=== PATIENT | male | born 1970 | race Caucasian/White ===

== ENCOUNTER 2019-04-01 16:42 | Emergency (ER) | payer SELFPAY | END 2019-04-01 17:53 | disposition home or self-care (01) | PROVIDERS: Emergency Provider Physician Assistant; Visit Provider Physician Assistant | DX: T63.301A Toxic effect of unspecified spider venom, accidental (unintentional), initial encounter (principal); L02.415 Cutaneous abscess of right lower limb; Z86.14 Personal history of Methicillin resistant Staphylococcus aureus infection | CPT/HCPCS: 10060; 96372; 99284; J2001; J3490 ==

== ENCOUNTER 2023-11-04 13:02 | Emergency (ER) | payer SELFPAY ==
[2023-11-04 13:06] VITALS: BP 126/78; PULSE 89; RESP 16; TEMP 36.8; O2SAT 98; BMI 27.6
--- NOTE | 2023-11-04 13:45 | ED_ITS ---
HPI - Altered Mental Status 2 General: Chief Complaint: Altered Mental Status Stated Complaint: no memory of 24 to 36 hours--possible seizure Time Seen by Provider: 11/04/23 13:45 History of Present Illness: 53-year-old male patient comes in today with not recalling the last 24 to 36 hours. Patient is concerned that he may have had a seizure. Patient has never known to have had seizures. Patient does endorse the use of tobacco and marijuana products. Patient denies alcohol or methamphetamines. Patient occasionally use Tylenol for pain. Patient denies any other chronic medical problems or medication use. Patient is alert and responds appropriately to questions at this time. Patient appears nontoxic. Patient moves all extremities well. Review of Systems 2 General: Reports: 10 or more systems reviewed and unremarkable except in HPI and below Physical Exam 2 Const: COMMON NORMALS: alert HENMT: COMMON NORMALS: normocephalic HEAD & SCALP: normocephalic THROAT: posterior oropharynx normal Neck/C-Spine: COMMON NORMALS: full ROM Chest: COMMONS NORMALS: normal inspection of the chest Resp: COMMON NORMALS: normal respiratory effort and clear to auscultation bilaterally AUSCULTATION: clear to auscultation bilaterally Cardio: COMMON NORMALS: regular rate and regular rhythm RATE: regular rate RHYTHM: regular rhythm GI: COMMON NORMALS: Soft to palpation and non-tender PALPATION: Yes Soft to palpation Back/Pelvis: COMMON NORMALS: thoracic and lumbar spine normal to inspection Extremity: COMMON NORMALS: full ROM Neuro: SENSORIUM/ORIENTATION: Yes alert Skin: COMMON NORMALS: turgor normal GENERAL SKIN EXAM: turgor normal Course 2 Vital Signs: Vital signs: Vital Signs Temperature 98.2 F 11/04/23 13:06 Pulse Rate 79 11/04/23 14:11 Respiratory Rate 16 11/04/23 14:11 Blood Pressure 130/86 11/04/23 14:11 Pulse Oximetry 97 11/04/23 14:11 Oxygen Delivery Me thod Room Air 11/04/23 14:11 MDM - Altered Mental Status Medical Decision Making 53-year-old male patient comes in today with complaints of loss of time. Patient reports not being able to recall the last 24 to 36 hours. Patient believes that he may have had a seizure. Patient has no history of seizures. Patient does use nicotine and THC. Lungs are clear to auscultation. Patient moves all extremities well. No focal neurodeficits. Vital signs are normal. Differential diagnosis includes not limited to seizure episode, intracranial mass, major depressive disorder, electrolyte imbalance, viral syndrome, adverse drug effect, anxiety disorder. CBC was normal. CMP suggest may be some mild dehydration. CT of the head was normal. Reviewed exam with patient offered fluids per IV but patient did not want to have that. Patient has not been sick or throwing up and feels he can rehydrate orally. Patient did agree for referral to neurology for further evaluation of memory changes and possible seizures. Case management referral was placed. Lab Data 11/04/23 13:30 11/04/23 13:[address] 11/04/23 13:49 IMPRESSION: 1. No evidence of intracranial hemorrhage or mass effect. 2. No acute intracranial findings. Laboratory Results WBC 7.35 10^3/uL (3.29-11.43) 11/04/23 13:30 RBC 4.89 10^6/uL (3.85-5.65) 11/04/23 13:30 Hgb 14.80 g/dL (11.27-16.99) 11/04/23 13:30 Hct 44.0 % (37-53) 11/04/23 13:30 MCV 90.0 fl (82-101) 11/04/23 13:30 MCH 30.3 pg (27-33) 11/04/23 13:30 MCHC 33.6 g/dL (30-55) 11/04/23 13:30 RDW 12.7 % (12.1-15.1) 11/04/23 13:30 Plt Count 239 10^3/cmm (157-399) 11/04/23 13:30 MPV 8.9 fL (7.4-10.4) 11/04/23 13:30 Neut % (Auto) 55.8 % 11/04/23 13:30 Lymph % (Auto) 35.9 % 11/04/23 13:30 [place] % (Auto) 6.1 % 11/04/23 13:30 Eos % (Auto) 1.5 % 11/04/23 13:30 Baso % (Auto) 0.4 % 11/04/23 13:30 Neut # (Auto) 4.10 10^3/uL (1.8-7.7) 11/04/23 13:30 Lymph # (Auto) 2.6 10^3/uL (0.8-4.8) 11/04/23 13:30 [place] # (Auto) 0.5 10^3/uL (0.2-0.9) 11/04/23 13:30 Eos # (Auto) 0.1 10^3/uL (0.0-0.8) 11/04/23 13:30 Baso # (Auto) 0.0 10^3/uL (0.0-0.1) 11/04/23 13:30 Nucleated RBC % (auto) 0 % 11/04/23 13:30 Nucleated RBCs # 0.0 /100WBC 11/04/23 13:30 Sodium 138 mmol/L (136-145) 11/04/23 13:30 Potassium 3.8 mmol/L (3.5-5.1) 11/04/23 13:30 Chloride 103 mmol/L (98-107) 11/04/23 13:30 Carbon Dioxide 19 mmol/L (22-29) L 11/04/23 13:30 Anion Gap 19.8 (5-19) H 11/04/23 13:30 BUN 36 mg/dL (6-20) H 11/04/23 13:30 Creatinine 1.0 mg/dL (0.7-1.2) 11/04/23 13:30 GFR Calculation 77.9 mL/min (90-130) L 11/04/23 13:30 Glucose 119 mg/dL (65-115) H 11/04/23 13:30 Calculated Osmolality 295 mOsm/kg (285-295) 11/04/23 13:30 Calcium 9.0 mg/dL (8.5-10.5) 11/04/23 13:30 Total Bilirubin 0.7 mg/dL (0.15-1.2) 11/04/23 13:30 AST 38 U/L (0-40) 11/04/23 13:30 ALT 25 U/L (0-41) 11/04/23 13:30 Alkaline Phosphatase 84 U/L (40-130) 11/04/23 13:30 Total Protein 6.9 g/dL (6.6-8.7) 11/04/23 13:30 Albumin 3.7 g/dL (3.5-5.2) 11/04/23 13:30 Globulin 3.2 g/dL (1.3-4.6) 11/04/23 13:30 All radiology interpretation(s) finalized by discharge Discharge Plan Discharge Patient Disposition: Home Clinical Impression: Memory change, Dehydration Condition: Stable Prescriptions: No Action No Known Home Medications Discharge Orders: Discharge ED (Routine); Ordered 11/04/23 Ordered By: Lauro Mendez Discharge Diet: Usual diet Discharge Activity: Increase activity as tolerated Patient Instructions: Altered Mental Status (ED) Activity Restrictions/Additional Instructions: Encourage plenty of fluids. I would recommend that decrease use of THC containing products at this time as that may interfere with your recollection and memory. Otherwise we will have you follow-up with neurology for further evaluation to rule out seizure disorder or other cognitive memory disorders. Return to ER for new concerns. Coding Level of Care Code ED General Office Clerk for [address]
[2023-11-04 13:49] LABS: Basophils % 0.4 %; Eosinophils # 0.1 10^3/uL (0.0-0.8); Eosinophils % 1.5 %; Lymphocytes # 2.6 10^3/uL (0.8-4.8); Lymphocytes % 35.9 %; Mean Corpuscular HGB Conc 33.6 g/dL (30-55); Mean Corpuscular Hemoglobin 30.3 pg (27-33); Mean Platelet Volume 8.9 fL (7.4-10.4); Monocytes # 0.5 10^3/uL (0.2-0.9); Monocytes % 6.1 %; Neutrophils % 55.8 %; Nucleated Red Blood Cells % 0 %; Platelet Count 239 10^3/cmm (157-399); Red Blood Count 4.89 10^6/uL (3.85-5.65); Red Cell Distribution Width 12.7 % (12.1-15.1); White Blood Count 7.35 10^3/uL (3.29-11.43)
--- NOTE | 2023-11-04 13:49 | CT_ITS ---
WS: [id number] CT HEAD TECHNIQUE: Noncontrast CT of the head obtained from the skullbase to the vertex. CLINICAL INFORMATION: AMS COMPARISON: None. DLP: 1104.[address] scans at [facility] use at least one of these dose optimization techniques: automated e xposure control; mA and/or kV adjustment per patient size (includes targeted exams where dose is matc hed to clinical indication); or iterative reconstruction. FINDINGS: No evidence of intracranial hemorrhage or mass effect. Ventricular system and basal cisterns are mayo nt. No extra-axial fluid collections. No evidence of mass or mass effect. Normal burgess-white different iation. Vascular calcification. Paranasal sinuses and mastoid air cells are well aerated. .Normal visualized soft tissues. CT/CT head wo con* [id number] IMPRESSION: 1. No evidence of intracranial hemorrhage or mass effect. 2. No acute intracranial findings.
[2023-11-04 14:11] VITALS: BP 130/86; PULSE 79; RESP 16; O2SAT 97
[2023-11-04 14:34] LABS: Alanine Aminotransferase 25 U/L (0-41); Albumin Level 3.7 g/dL (3.5-5.2); Alkaline Phosphatase 84 U/L (40-130); Blood Urea Nitrogen 36 mg/dL (6-20); Carbon Dioxide 19 mmol/L (22-29); Chloride 103 mmol/L (98-107); Creatinine Clr Calc Pharmacy 105.5038; Globulin 3.2 g/dL (1.3-4.6); Glomerular Filtration Rate 77.9 mL/min (90-130); Glucose 119 mg/dL (65-115); Osmolality Calculated 295 mOsm/kg (285-295); Sodium 138 mmol/L (136-145); Total Bilirubin 0.7 mg/dL (0.15-1.2); Total Protein 6.9 g/dL (6.6-8.7)
[2023-11-04 14:35] LABS: Anion Gap 19.8 (5-19); Aspartate Amino Transferase 38 U/L (0-40); Potassium 3.8 mmol/L (3.5-5.1)
[2023-11-04 14:49] VITALS: BP 121/94; PULSE 80; O2SAT 96
--- NOTE | 2023-11-05 13:19 | DCPLANNER ---
messaged neurology for er f/u
== END 2023-11-04 14:51 | disposition home or self-care (01) ==
PROVIDERS: Emergency Medicine; Emergency Provider Nurse Practitioner Family
DX: E86.0 Dehydration (principal); R41.3 Other amnesia
CPT/HCPCS: 36415; 70450; 80053; 85025; 99284

== ENCOUNTER 2023-11-08 09:49 | Emergency (ER) | payer SELFPAY ==
[2023-11-08 09:54] VITALS: BP 164/111; PULSE 84; RESP 22; TEMP 36.5; O2SAT 100
--- NOTE | 2023-11-08 10:24 | XRR_ITS ---
PROCEDURE INFORMATION: Exam: XR Right Ankle Exam date and time: 11/08/2023 10:40 AM Age: 53 years old Clinical indication: Pain; Ankle; Right; Additional info: Pain and swelling TECHNIQUE: Imaging protocol: Radiologic exam of the right ankle. Views: 3 or more views. COMPARISON: CR XR foot RT min 3V* [id number] 11/08/2023 10:40 AM FINDINGS: Bones/joints: No acute fracture or subluxation. Soft tissues: Mild soft tissue swelling along the bilateral malleolus. 16 millimeters x 0.7 millimeter metallic foreign object along the plantar soft tissues of the midfoot. XR/XR ankle RT min 3V* [id number] IMPRESSION: 1. No acute fracture, mild soft tissue swelling of the ankle. 2. 16 millimeters x 0.7 millimeter metallic foreign object along the plantar soft tissues of the midfoot.
--- NOTE | 2023-11-08 10:24 | XRR_ITS ---
PROCEDURE INFORMATION: Exam: XR Right Foot Exam date and time: 11/08/2023 10:40 AM Age: 53 years old Clinical indication: Pain; Foot; Right; Additional info: Pain and swelling TECHNIQUE: Imaging protocol: Radiologic exam of the right foot. Views: 3 or more views. COMPARISON: CR (LOW EXM, ) 11/08/2023 10:40 AM FINDINGS: Bones/joints: No acute fracture or subluxation. Soft tissues: Mild soft tissue swelling along the bilateral malleolus. 16 millimeters x 0.7 millimeter metallic foreign object along the plantar soft tissues of the midfoot. XR/XR foot RT min 3V* [id number] IMPRESSION: 1. No acute fracture, mild soft tissue swelling of the ankle. 2. 16 millimeters x 0.7 millimeter metallic foreign object along the plantar soft tissues of the midfoot.
--- NOTE | 2023-11-08 10:25 | ED_ITS ---
HPI - Extremity Problem 2 General: Chief complaint: Extremity Injury, Lower Stated complaint: right foot pain Time Seen by Provider: 11/08/23 09:57 Source: patient Mode of arrival: ambulatory Limitations: no limitations History of Present Illness: This patient comes to the emergency room because he think he is having a gout attack. He states approximately 2 days ago he started noticing pain in his ankle which also developed subsequently in his foot. He denies any known trauma falls twisting etc. He states that the pain is similar to that that he is experienced with gout attacks in the past. He denies any fevers or chills. He states that he does not take any current medications to include any diuretics or uric acid reducing medicines etc. He states he does not drink alcohol. He states he is otherwise in pretty good health. He denies any other joint pain. MD Complaint: extremity pain and extremity swelling Associated symptoms: Deny fever(s) or rash Review of Systems 2 Const: Denies: fever(s) or chills ENMT: Denies: odynophagia, nasal discharge or nasal congestion Card: Denies: palpitations, syncope or pre-syncope Resp: Denies: dyspnea, productive cough or non-productive cough GI: Denies: abdominal pain, nausea or vomiting : Denies: difficulty urinating, dysuria or urinary frequency Musc: Reports: extremity pain Skin/Breast: Denies: rash or pruritus Neuro: Denies: headache(s), numbness in extremities or weakness in extremities Endo: Denies: polyuria or polydipsia Physical Exam 2 Narrative: EXAM NARRATIVE: Patient appears to be comfortable in no acute distress. He has normal body habitus and answers questions in a goal-directed fashion. Const: COMMON NORMALS: no acute distress, average body habitus and patient oriented x3 GENERAL APPEARANCE: cooperative HENMT: COMMON NORMALS: normocephalic and Normal nasal mucous membranes and turbinates present HEAD & SCALP: normocephalic NOSE: Normal nasal mucous membranes and turbinates present Eye: COMMON NORMALS: Equal, round and reactive pupils present and conjunctivae normal CONJUNCTIVA: Yes conjunctivae normal PUPIL: Yes Equal, round and reactive pupils present Neck/C-Spine: COMMON NORMALS: full ROM Resp: COMMON NORMALS: normal respiratory effort and No use of accessory muscles EFFORT & INSPECTION: Yes able to speak in complete sentences and Yes symmetric chest movement Cardio: COMMON NORMALS: regular rate and Peripheral pulses 2+ throughout R ATE: regular rate PERIPHERAL PULSES: Peripheral pulses 2+ throughout Back/Pelvis: COMMON NORMALS: thoracic and lumbar spine normal to inspection, no thoracic nor lumbar tenderness and thoraco-lumbar ROM normal Extremity: COMMON NORMALS: capillary refill normal NARRATIVE EXTREMITY EXAM: Examination with attention to his right lower extremity reveals normal range of motion at the hip and knee joint. He has reduced ankle dorsiflexion and plantarflexion as well as reduced movement of the intrinsic foot to include extension and flexion of toes. These are limited by subjective pain. The skin appears to be slightly shiny. There is no significant erythema. There is localized tenderness throughout the area involving his distal leg and ankle to the light touch. There is no obvious palpable effusion. He does have some nonpitting soft tissue edema. Examination of the intertriginous areas reveals no fissures etc. No evidence of lacerations or injury. There is a abraded area in his heel but there is no drainage or significant erythema. He does have minimal tenderness to AP compression of the ankle as well as AP compression of the foot. There is no midfoot tenderness to plantar palpation. Neurovascular intact otherwise. Neuro: COMMON NORMALS: patient oriented x3, moves all extremities, no focal motor deficits and no sensory deficits noted Psych: COMMON NORMALS: mental status grossly normal Skin: COMMON NORMALS: no rashes or lesions noted, no wounds and turgor normal GENERAL SKIN EXAM: no rashes or lesions noted and turgor normal Course 2 Reevaluation(s): Reevaluation #1: On my preliminary evaluation of the foot x-rays are noted what appears to be a linear metallic appearing foreign body in the subcutaneous tissues of the plantar surface of the midfoot. I asked the patient if he had stepped on anything recently denied. I reexamined him again and there was no area of recent puncture wound there is no erythema no local tenderness in the region corresponding to what appears to be a linear metallic foreign body. He then related that he had stepped on a needle many years ago. He states that this area had never bothered him and it was not painful or tender. Time: 11:03 Reevaluation #2: Portable bedside ultrasound was used to visualize the venous structures of the right lower extremity. Using a linear transducer the popliteal vessels at the trifurcation were visualized and were fully compressible. Following the venous structures proximally at the junction of the superficial femoral and deep femoral veins they were fully compressible as well. No evidence of suggest at this time of a deep venous thrombosis. Time: 14:36 Vital Signs: Vital signs: Vital Signs Temperature 97.7 F 11/08/23 09:54 Pulse Rate 84 11/08/23 09:54 Respiratory Rate 22 H 11/08/23 09:54 Blood Pressure 164/111 11/08/23 09:54 Pulse Oximetry 100 11/08/23 09:54 Oxygen Delivery Me thod Room Air 11/08/23 09:54 MDM - Extremity (Nontraumatic) Medical Decision Making This patient presents to the emergency department because of right foot and ankle discomfort and swelling over the past several days. No associated fevers or clinical redness. The remainder of his presentation is consistent with his HPI. He denies any recent injury etc. Clinical exam revealed some's nonpitting soft tissue swelling of the right lower extremity. There is no proximal lymphangitis or lymphadenopathy noted. Differential included possible fracture,, dislocation, cellulitis, gouty arthritis less likely infection or retained foreign body etc. Very unlikely to be a deep venous thrombosis. Radiographs obtained did reveal evidence of a needle like structure in the plantar area of his foot without any surrounding edema etc. He has chemistries when obtained revealed normal renal function and a normal uric acid. He did have a small abrasion is noted in his heel whether or not as a source of potential infection is not clear but certainly no evidence at this time to suggest a significant infection but he does have the soft tissue swelling. No evidence of DVT, uric acid elevation consistent with gout etc. Also no evidence of fracture, dislocation etc. He has had the foreign body in his plantar foot for over 2 years without any issues but this certainly could have caused a occult cellulitis but there is no evidence of local tenderness erythema etc. Discussed all findings with the patient. Plan will be to put him on a course of antibiotics put in a consultation for podiatry and also discussed return precautions in detail. Lab Data I reviewed the patient's lab results. 11/08/23 13:58 Radiology Impressions Ankle X-Ray 11/08/23 10:24 IMPRESSION: 1. No acute fracture, mild soft tissue swelling of the ankle. 2. 16 millimeters x 0.7 millimeter metallic foreign object along the plantar soft tissues of the midfoot. Foot X-Ray 11/08/23 10:24 IMPRESSION: 1. No acute fracture, mild soft tissue swelling of the ankle. 2. 16 millimeters x 0.7 millimeter metallic foreign object along the plantar soft tissues of the midfoot. Laboratory Results Sodium 133 mmol/L (136-145) L 11/08/23 13:58 Potassium 3.9 mmol/L (3.5-5.1) 11/08/23 13:58 Chloride 99 mmol/L (98-107) 11/08/23 13:58 Carbon Dioxide 23 mmol/L (22-29) 11/08/23 13:58 Anion Gap 14.9 (5-19) 11/08/23 13:58 BUN 10 mg/dL (6-20) 11/08/23 13:58 Creatinine 0.8 mg/dL (0.7-1.2) 11/08/23 13:58 GFR Calculation 100.7 mL/min (90-130) 11/08/23 13:58 Glucose 95 mg/dL (65-115) 11/08/23 13:58 Calculated Osmolality 275 mOsm/kg (285-295) L 11/08/23 13:58 Uric Acid 5.4 mg/dL (3.4-7.0) 11/08/23 13:58 Calcium 8.8 mg/dL (8.5-10.5) 11/08/23 13:58 All radiology interpretation(s) finalized by discharge Discharge Plan Discharge Patient Disposition: Home Clinical Impression: Foot and ankle pain Condition: Stable Prescriptions: New cephalexin 500 mg capsule 500 mg PO TID 7 Days Qty: 21 0RF No Action No Known Home Medications Discharge Orders: Discharge ED (Routine); Ordered 11/08/23 Ordered By: Landon Turner Discharge Diet: Usual diet Discharge Activity: Increase activity as tolerated Patient Instructions: Opioid Safety, Pain Management Activity Restrictions/Additional Instructions: As we discussed you do not have any evidence that you have a bony injury such as a fracture or dislocation etc. There is is a possibility he may have a low- grade soft tissue infection so therefore we have prescribed an antibiotic. You do not appear to have any evidence of gout at this time. We discussed you have what appears to be a metallic foreign body in your sole of your foot which you have known about and that may or may not be a factor in your current foot pain and swelling. We have placed a request for podiatry consult as well. If your symptoms do not continue to improve over the next 3 to 5 days or worsen at any time or you develop new symptoms you are to return to the emergency department for reevaluation. You should hear from case management regarding a podiatry appointment. You may use either ice acetaminophen or ibuprofen for pain and discomfort. Coding Level of Care Code ED Charge Accounts Audit Clerk for [address]
[2023-11-08] MEDS: HYDROcodone-acetaminophen 7.5-325 mg Tablet 1 TAB PO (12:53)
[2023-11-08 14:19] LABS: Blood Urea Nitrogen 10 mg/dL (6-20); Calcium 8.8 mg/dL (8.5-10.5); Carbon Dioxide 23 mmol/L (22-29); Chloride 99 mmol/L (98-107); Creatinine Clr Calc Pharmacy 133.2343; Glomerular Filtration Rate 100.7 mL/min (90-130); Glucose 95 mg/dL (65-115); Osmolality Calculated 275 mOsm/kg (285-295); Sodium 133 mmol/L (136-145); Uric Acid 5.4 mg/dL (3.4-7.0)
[2023-11-08 14:25] LABS: Anion Gap 14.9 (5-19); Potassium 3.9 mmol/L (3.5-5.1)
[2023-11-08] MEDS: cephALEXin 500 mg Capsule PO (14:40)
--- NOTE | 2023-11-09 07:25 | DCPLANNER ---
message sent to podiatry for er f/u
== END 2023-11-08 15:21 | disposition home or self-care (01) ==
PROVIDERS: Emergency Provider Emergency Medicine
DX: M79.671 Pain in right foot (principal); M25.571 Pain in right ankle and joints of right foot
CPT/HCPCS: 73610; 73630; 80048; 84550; 99283

== ENCOUNTER 2023-11-09 05:56 | Emergency (ER) | payer SELFPAY ==
[2023-11-09 05:57] VITALS: BP 144/95; PULSE 74; RESP 18; TEMP 36.5; O2SAT 97; BMI 29.8
--- NOTE | 2023-11-09 06:22 | CTR_ITS ---
PROCEDURE INFORMATION: Exam: CT Right Lower Extremity Without Contrast Exam date and time: 11/09/2023 6:37 AM Age: 53 years old Clinical indication: Pain; Edema and swelling, leg or foot; Yes, it is localized; Ankle and foot; Right; Additional info: Ankle pain and swelling - image knee-toes TECHNIQUE: Imaging protocol: CT of the right lower extremity without contrast was performed. Radiation optimization: All CT scans at this facility use at least one of these dose optimization techniques: automated exposure control; mA and/or kV adjustment per patient size (includes targeted exams where dose is matched to clinical indication); or iterative reconstruction. COMPARISON: CR (LOW EXM, ) 11/08/2023 10:40 AM RADIATION DOSE METRICS: Total DLP (mGy-cm): 916 FINDINGS: Bones/joints: Increased density in the subcutaneous fat of the ankle and foot indicates edema and/or cellulitis. No drainable abscess. No bones are normal. . No acute fracture or dislocation. Soft tissues: Normal. CT/CT lower leg RT w con [id number] IMPRESSION: Mild edema or cirrhosis.
[2023-11-09 06:23] VITALS: BP 116/89; PULSE 77; RESP 16; O2SAT 100
--- NOTE | 2023-11-09 06:24 | ED_ITS ---
HPI - Extremity Problem 2 General: Chief complaint: Extremity Problem,Nontraumatic Stated complaint: Right foot pain and infection Time Seen by Provider: 11/09/23 06:10 History of Present Illness: 53-year-old male presents to the emergen cy room with complaint of right ankle pain. He was seen yesterday and evaluated he is retained foreign body looks like a portion of a broken needle and the sole of his foot most of his pain however is focused around the ankle joint itself. He is citing exquisite pain. He was seen yesterday x-rays did not show any abnormality of the ankle or the foot except a retained foreign body. Uric acid level was done was essentially normal. Patient has previously had difficulty with gout in the past. No pain in the first MP joint on the right foot. Associated symptoms: Deny chest pain, fever(s) or rash Review of Systems 2 Const: Denies: fever(s) or chills Card: Denies: chest pain Resp: Denies: dyspnea GI: Denies: abdominal pain : Denies: dysuria, urinary frequency or urinary urgency Musc: Reports: joint pain, joint swelling and limited range of motion; Denies: neck pain or back pain Skin/Breast: Denies: rash Physical Exam 2 Const: COMMON NORMALS: no acute distress GENERAL APPEARANCE: cooperative and comfortable ORIENTATION/CONSCIOUSNESS: Yes awake, Yes oriented to person, Yes oriented to place and Yes oriented to time HENMT: COMMON NORMALS: normocephalic, atraumatic and hearing grossly normal bilaterally HEAD & SCALP: normocephalic and atraumatic Resp: COMMON NORMALS: normal respiratory effort, No retractions, No use of accessory muscles and clear to auscultation bilaterally AUSCULTATION: clear to auscultation bilaterally Cardio: COMMON NORMALS: regular rate, regular rhythm and No murmurs present (Cardio) RATE: regular rate RHYTHM: regular rhythm Extremity: COMMON NORMALS: capillary refill normal and no calf tenderness O THER: Mild swelling exquisite pain to even light touch on the left ankle particular medially. Dorsalis pedis pulse palpable posterior tibialis pulse unable to palpate. No cyanosis or ischemia no skin breakdown ulceration laceration abrasion pressure ulcer or varicosity. No pain or swelling in the calf. Neuro: SENSORIUM/ORIENTATION: Yes oriented to person, Yes oriented to place and Yes oriented to time Skin: COMMON NORMALS: no rashes or lesions noted GENERAL SKIN EXAM: no rashes or lesions noted Course 2 Vital Signs: Vital signs: Vital Signs Temperature 97.7 F 11/09/23 05:57 Pulse Rate 71 11/09/23 10:34 Respiratory Rate 17 11/09/23 09:03 Blood Pressure 134/89 11/09/23 10:34 Pulse Oximetry 99 11/09/23 10:34 Oxygen Delivery Me thod Room Air 11/09/23 10:34 MDM - Extremity (Nontraumatic) Medical Decision Making Patient has some swelling and significant discomfort no elevation of the white count sed rate and CRP are slightly elevated CT is more suggestive of cellulitis he does have some mild redness over the dorsum of the foot but the most of the discomfort and swelling is at the medial aspect of the ankle. Discussed with Dr. Owens who is on-call for podiatry. He will see the patient immediately after the discharge from the ER in his office. We did give him a dose of vancomycin and cultures have been obtained. Lab Data 11/09/23 06:21 11/09/23 06:21 Radiology Impressions Lower Extremity CT 11/09/23 06:22 IMPRESSION: Mild edema or cirrhosis. Laboratory Results WBC 11.26 10^3/uL (3.29-11.43) 11/09/23 06:21 RBC 5.12 10^6/uL (3.85-5.65) 11/09/23 06:21 Hgb 15.40 g/dL (11.27-16.99) 11/09/23 06:21 Hct 44.8 % (37-53) 11/09/23 06:21 MCV 87.5 fl (82-101) 11/09/23 06:21 MCH 30.1 pg (27-33) 11/09/23 06:21 MCHC 34.4 g/dL (30-55) 11/09/23 06:21 RDW 12.4 % (12.1-15.1) 11/09/23 06:21 Plt Count 269 10^3/cmm (157-399) 11/09/23 06:21 MPV 8.5 fL (7.4-10.4) 11/09/23 06:21 Neut % (Auto) 72.7 % 11/09/23 06:21 Lymph % (Auto) 17.9 % 11/09/23 06:21 [place] % (Auto) 6.7 % 11/09/23 06:21 Eos % (Auto) 1.9 % 11/09/23 06:21 Baso % (Auto) 0.4 % 11/09/23 06:21 Neut # (Auto) 8.20 10^3/uL (1.8-7.7) H 11/09/23 06:21 Lymph # (Auto) 2.0 10^3/uL (0.8-4.8) 11/09/23 06:21 [place] # (Auto) 0.8 10^3/uL (0.2-0.9) 11/09/23 06:21 Eos # (Auto) 0.2 10^3/uL (0.0-0.8) 11/09/23 06:21 Baso # (Auto) 0.0 10^3/uL (0.0-0.1) 11/09/23 06:21 Nucleated RBC % (auto) 0 % 11/09/23 06:21 Nucleated RBCs # 0.0 /100WBC 11/09/23 06:21 ESR 26 mm/hr (0-10) H 11/09/23 06:21 Sodium 131 mmol/L (136-145) L 11/09/23 06:21 Potassium 3.8 mmol/L (3.5-5.1) 11/09/23 06:21 Chloride 95 mmol/L (98-107) L 11/09/23 06:21 Carbon Dioxide 25 mmol/L (22-29) 11/09/23 06:21 Anion Gap 14.8 (5-19) 11/09/23 06:21 BUN 8 mg/dL (6-20) 11/09/23 06:21 Creatinine 0.8 mg/dL (0.7-1.2) 11/09/23 06:21 GFR Calculation 100.7 mL/min (90-130) 11/09/23 06:21 Glucose 127 mg/dL (65-115) H 11/09/23 06:21 Calculated Osmolality 272 mOsm/kg (285-295) L 11/09/23 06:21 Calcium 9.2 mg/dL (8.5-10.5) 11/09/23 06:21 Total Bilirubin 0.4 mg/dL (0.15-1.2) 11/09/23 06:21 AST 23 U/L (0-40) 11/09/23 06:21 ALT 38 U/L (0-41) 11/09/23 06:21 Alkaline Phosphatase 124 U/L (40-130) 11/09/23 06:21 C-Reactive Protein 63.4 mg/L (0.0-4.9) H 11/09/23 06:21 Total Protein 6.9 g/dL (6.6-8.7) 11/09/23 06:21 Albumin 3.8 g/dL (3.5-5.2) 11/09/23 06:21 Globulin 3.1 g/dL (1.3-4.6) 11/09/23 06:21 All radiology interpretation(s) finalized by discharge Discharge Plan Discharge Patient Disposition: Home Clinical Impression: Cellulitis, Cellulitis of foot Condition: Stable Prescriptions: New levofloxacin 750 mg tablet 750 mg PO DAILY 10 Days Qty: 10 0RF hydrocodone-acetaminophen 5-325 mg tablet 1 tab PO Q6H PRN (Reason: pain) Qty: 15 0RF Discharge Orders: Discharge ED (Routine); Ordered 11/09/23 Ordered By: João Go Discharge Diet: Usual diet Discharge Activity: Resume usual activity Patient Instructions: Opioid Safety, Pain Management Activity Restrictions/Additional Instructions: Thank you for choosing [facility] for your healthcare needs today. It is very important that you follow up as instructed or that you return to the Emergency Department should you have concerns or if your condition changes or worsens in any way. You were seen and evaluated emergency room for swelling and pain in your right ankle. CT showed possible cellulitis. Will have you stop the cephalexin and start Levaquin 750 daily. Your white count is not elevated I discussed your case with Dr. Owens who is on-call for podiatry he will see you in the office after your discharge from the emergency room. He will evaluate for possible joint aspiration to further evaluate for gout. 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
[2023-11-09 06:32] LABS: Basophils % 0.4 %; Eosinophils # 0.2 10^3/uL (0.0-0.8); Eosinophils % 1.9 %; Hematocrit 44.8 % (37-53); Lymphocytes % 17.9 %; Mean Corpuscular HGB Conc 34.4 g/dL (30-55); Mean Corpuscular Hemoglobin 30.1 pg (27-33); Mean Corpuscular Volume 87.5 fl (82-101); Mean Platelet Volume 8.5 fL (7.4-10.4); Monocytes # 0.8 10^3/uL (0.2-0.9); Monocytes % 6.7 %; Neutrophils % 72.7 %; Nucleated Red Blood Cells % 0 %; Platelet Count 269 10^3/cmm (157-399); Red Blood Count 5.12 10^6/uL (3.85-5.65); Red Cell Distribution Width 12.4 % (12.1-15.1); White Blood Count 11.26 10^3/uL (3.29-11.43)
[2023-11-09] MEDS: iohexol 350 mg/mL 500 mL Btl (per mL) IV (06:52)
[2023-11-09 06:56] LABS: Alanine Aminotransferase 38 U/L (0-41); Albumin Level 3.8 g/dL (3.5-5.2); Alkaline Phosphatase 124 U/L (40-130); Anion Gap 14.8 (5-19); Aspartate Amino Transferase 23 U/L (0-40); Blood Urea Nitrogen 8 mg/dL (6-20); C Reactive Protein 63.4 mg/L (0.0-4.9); Calcium 9.2 mg/dL (8.5-10.5); Carbon Dioxide 25 mmol/L (22-29); Chloride 95 mmol/L (98-107); Creatinine Clr Calc Pharmacy 129.1135; Globulin 3.1 g/dL (1.3-4.6); Glomerular Filtration Rate 100.7 mL/min (90-130); Glucose 127 mg/dL (65-115); Osmolality Calculated 272 mOsm/kg (285-295); Potassium 3.8 mmol/L (3.5-5.1); Sodium 131 mmol/L (136-145); Total Bilirubin 0.4 mg/dL (0.15-1.2); Total Protein 6.9 g/dL (6.6-8.7)
[2023-11-09 07:05] LABS: Erythrocyte Sedimentation Rate 26 mm/hr (0-10)
[2023-11-09 09:03] VITALS: RESP 17; O2SAT 99
[2023-11-09] MEDS: morphine 4 mg/mL SDV 1 mL IVP (09:03)
[2023-11-09] MEDS: ondansetron 2 mg/ML SDV 2 mL 4 MG IVP (09:03)
[2023-11-09] MEDS: vancomycin 1,000 MG in sodium chloride 0.9% 250 ML 250 MG IV (09:04)
[2023-11-09 10:34] VITALS: BP 134/89; PULSE 71; O2SAT 99
== END 2023-11-09 11:05 | disposition home or self-care (01) ==
PROVIDERS: Emergency Provider Family Medicine
DX: L03.115 Cellulitis of right lower limb (principal)
CPT/HCPCS: 36415; 73701; 80053; 85025; 85651; 86140; 87040; 96374; 96375; 99285; J2270; J2405; J3370; J7050; Q9967

== ENCOUNTER 2024-10-31 11:22 | Emergency (ER) | payer SELFPAY ==
--- OUTSIDE RECORDS SUMMARY | 2016-09-26 03:45 | XMS_ITS | Continuity of Care Document ---
Author Organization [facility] Address [id number] [address] Phone Care Team Providers Care Power System Operator Name Role Phone Unavailable Unavailable Unavailable Allergies, Adverse Reactions, Alerts Substance Reaction Status Criticality No Known Allergies Active No Inform ation Medications Medication Instructions Dosage Effective Dates (start - stop) Status Comments hydrocodone 5 mg-acetaminophen 325 mg tablet take 1 tablet by oral route every 6 hours as needed for pain for post-op pain 1.00 tablet - Active hydrocodone 5 mg-acetaminophen 325 mg tablet take 1 tablet by oral route every 6 hours as needed for pain from oral surgery for Post op pain - No Longer Active IBUPROFEN (unknown strength) Not Available - No Longer Active Procedures Procedure Date Limited Oral Evaluation Problem Focused Intraoral Periapical First Film Intraoral Periapical Each Additional Film Extraction, Erupted Tooth Or Exposed Coby t (Elev Extraction, Erupted Tooth Or Exposed Coby t (Elev EDR Approval Note Limited oral eval, x-ray & 1st extractio n Slide 2 Urgent Each Additional Extraction SLIDE 2 Intraoral Periapical First Film Limited Oral Evaluation Problem Focused Extraction, Erupted Tooth Or Exposed Coyb t (Elevati Limited oral eval, x-ray & 1st extractio n EDR Approval Note Advance Directives Directive Yes / No Effective Date File Name No Information Encounters Encounter Description Practice Location Reason(s) For Visit Diagnoses Date Provider Providers Copied on Encounter [facility], [id number] [facility], [place], [place], [id number], tel:[phone] [facility] Encounter for dental exam and cleaning w/o abnormal findings 7 No Information [facility], [id number] [facility], [place], [place], [id number], tel:[phone] [facility] No Information 5 Ronnell Vaughn. [address] [place], [address], . tel:[phone] Referring Provider: Roderick Ravi, [address] [place], [address]. tel:[phone] Family History Family Member Type Diagnosis Age At Onset Brother Problem (finding) Alive and well Payers Payer name Insurance type Covered libertarian ID Authoriza tion(s) No Information Social History Type Description Quantity Date Captured Comments Alcohol Use Details Caffeine Use Details Unknown Tobacco Use Status Smoking Status Heavy tobacco smoker Smoking Tobacco Use Details Cigarette: No Details Available Cigarette: 0.5 Packs per day Sex Male Gender Identity Male Vital Signs Date / Time: Height Weight BMI Pulse Rate Blood Pressure Temperature Respiratory Rate Body Surface Area Head Circumference Head Circ. Percentile Wt./[place]. Percentile BMI percentile Pulse Ox Inhaled Ox 9:45 AM 120/70 mm[Hg] Chief Complaint And Reason For Visit No Information Reason For Referral Reason For Referral No Information Plan Of Treatment Date Type Action Status Goal Tobacco cessation counseling completed Goal Tobacco cessation counseling completed History Of Present Illness Encounter Date Complaint History Of Prese nt Illness No Information Functional Status Date Functional Assessmen t No Information Instructions Date Instruction Additional Infor mation Lifestyle education Related to D ental Examination Lifestyle education Related to D ental Examination Assessments Type Assessment Date No Information Patient Care Teams Name Effective Dates (start - stop) Status Members No Information
[2024-10-31 11:40] VITALS: BP 162/98; PULSE 94; RESP 16; O2SAT 97
--- NOTE | 2024-10-31 11:43 | ED_ITS ---
HPI - Extremity Problem General: Chief complaint: Extremity Injury, Lower Stated complaint: Left foot pain Time Seen by Provider: 10/31/24 11:35 Source: patient Mode of arrival: ambulatory Limitations: no limitations History of Present Illness: 54-year-old male with history of gout pr esents to the ED with complaint of left great toe pain and redness/swelling, onset 2 days ago. He rates his pain 6/10 and reports some difficulty ambulating due to the pain. He denies any trauma or injury to his foot. He states that this feels like his usual gout flares. He reports that he gets gout flares about every 2 years, and his last flare was about 1 year ago. He has been treated with Indomethacin in the past, which has worked well for him. He is not on Allopurinol. No other complaints at this time. MD Complaint: joint pain Onset (ago): day(s) (2) Pain Consistency: constant Location: left and toe (great toe) Severity scale (1-10): 6 Quality: stabbing Radiation: none Relieving factors: nothing Exacerbating factors: range of motion, weight bearing, walking and palpation Associated symptoms: Reports no associated symptoms; Deny chest pain or fever(s) Context: history of gout Related Data Previous Rx's ?Medication ?Instructions ?Recorded hydrocodone 5 mg-acetaminophen 325 1 tab PO Q6H PRN pa in #15 tabs 10/31/24 mg tablet indomethacin 50 mg capsule 50 mg PO TID #15 caps 10/31 prednisone 10 mg tablet 10 mg PO DAILY 6 days #20 ta bs 10/31/24 Allergies Allergy/AdvReac Type Severity Reaction Status Date / Time No Known Allergies Allergy Verified 11/09/23 12:05 Review of Systems Const: Denies: fever(s), chills, body aches, fatigue or malaise Card: Denies: chest pain Resp: Denies: dyspnea Musc: Reports: joint pain (left 1st MTP joint) and joint swelling (left 1st MTP joint); Denies: neck pain or back pain Skin/Breast: Reports: erythema (left 1st MTP joint) Neuro: Reports: difficulty walking (secondary to pain in L foot); Denies: headache(s), numbness in extremities, weakness in extremities or sensory changes Physical Exam Const: COMMON NORMALS: no acute distress, average body habitus, no limitations, healthy appearing, alert and well nourished GENERAL APPEARANCE: cooperative Resp: COMMON NORMALS: normal respiratory effort and clear to auscultation bilaterally AUSCULTATION: clear to auscultation bilaterally Cardio: COMMON NORMALS: regular rate and regular rhythm RATE: regular rate RHYTHM: regular rhythm Extremity: COMMON NORMALS: capillary refill normal, no clubbing, cyanosis or edema, no calf tenderness and no pedal edema GENERAL: Yes normal exam except as noted LEFT LOWER EXTREMITY: Yes foot & digits (TTP, edema. erythema to L 1st MTP joint consistent with gout) Left foot and digits: Yes neurovascular exam (normal) Neuro: COMMON NORMALS: moves all extremities, no focal motor deficits and no sensory deficits noted SENSORIUM/ORIENTATION: Yes alert Skin: COMMON NORMALS: no rashes or lesions noted GENERAL SKIN EXAM: no rashes or lesions noted Course Vital Signs: Vital signs: Vital Signs Pulse Rate 89 10/31/24 11:44 Respiratory Rate 16 10/31/24 11:40 Blood Pressure 162/98 10/31/24 11:44 Pulse Oximetry 95 10/31/24 11:44 Oxygen Delivery Me thod Room Air 10/31/24 11:44 MDM - Extremity (Nontraumatic) Medical Decision Making Patient's history and physical exam is consistent with gout. He will be given Solu-Medrol, Colchicine, Toradol here in the emergency department and will place on steroids, anti-inflammatories, and pain medications at home. Return ED precautions discussed. Medical Records I reviewed the patient's medical records. No radiology studies performed this visit Discharge Plan Discharge Patient Disposition: Home Clinical Impression: Acute gout of left foot Qualifiers: Gout etiology: unspecified cause Qualified Code(s): M10.9 - Gout, unspecified Condition: Stable Prescriptions: New indomethacin 50 mg capsule 50 mg PO TID Qty: 15 0RF Rx Instructions: administer with food or milk prednisone 10 mg tablet 10 mg PO DAILY 6 Days Qty: 20 0RF Rx Instructions: Take 5 tabs on day 1-2, 4 tabs on day 3, 3 tabs on day 4, 2 tabs on day 5, and 1 tab on day 6 Continued hydrocodone-acetaminophen 5-325 mg tablet 1 tab PO Q6H PRN (Reason: pain) Qty: 15 0RF Discharge Orders: Discharge ED (Routine); Ordered 10/31/24 Ordered By: Tania Rodriguez Patient Instructions: Gout, Gout (ED), Opioid Safety, Pain Management, Patient Portal & Ari Instructions Print Language: Luxembourgish Coding Level of Care Code ED Chemical Worker for [address]
[2024-10-31 11:44] VITALS: BP 162/98; PULSE 89; O2SAT 95
[2024-10-31] MEDS: methylPREDNISolone sod succ 125 mg/2 mL INJ IM (12:11)
--- NOTE | 2024-10-31 12:32 | PC.NURSE ---
At approx 1210 this nurse heard a male voice say taqueriay down the hallway. i found him in his room sitting on the side of the bed saying help, I don't feel good. I immeditaly helped him set back in bed with I could see and feel how burgess and diaphoretic he was. I called for help and Dr. Go, Katarina RN, and Tania GARCIA came to the room to assist. This nurse placed an 18g IV on first attempt to right FA. Secured with tegaderm and flushed. Pt was talking and feeling much better when I turned over care to pts nurse Arredondo.
[2024-10-31 13:07] VITALS: BP 121/87; PULSE 62; RESP 16; O2SAT 96
== END 2024-10-31 13:06 | disposition home or self-care (01) ==
PROVIDERS: Emergency Provider Physician Assistant
DX: M10.072 Idiopathic gout, left ankle and foot (principal)
CPT/HCPCS: 96372; 99284; J1885; J2919; J7030; J9999